=== PATIENT | male | born 1950 | race African-American/Black ===

== ENCOUNTER 2019-05-02 10:02 | Inpatient (IN) | payer OTHER, BC ==
[2019-05-02] MEDS ORDERED: methylPREDNISolone NA SUCC 125 MG/2 ML VIAL ONE (10:10)
[2019-05-02] MEDS ORDERED: FAMOTIDINE 20 MG/50 ML IVPB 20 MG/50 ML MG IVPB ONE ×2 (10:10→10:13)
[2019-05-02] MEDS ORDERED: DEXAMETHASONE SOD PHOSPHATE 10 MG/1 ML VIAL IVPUSH ONE (10:13)
[2019-05-02] MEDS ORDERED: DEXAMETHASONE SOD PHOSPHATE 10 MG/1 ML VIAL ONE (10:14)
[2019-05-02 10:49] LABS: BASO % 0.3 % (0-2.0); EOS % 4.6 % (0-4.5); HEMATOCRIT 38.9 % (35.4-49); HEMOGLOBIN 13.1 GM/dL (11.7-16.9); LYMPH % 29.2 % (8-40); MCH 27.3 pg (25.7-33.7); MCHC 33.7 g/dl (32.0-35.9); MEAN CELL VOLUME 81.1 fl (80-96); MEAN PLT VOLUME 8.5 fl (7.5-11.1); MONO % 21.1 % (3.8-10.2); NEUT % 44.8 % (42.8-82.8); PLATELET COUNT 201 K/MM3 (134-434); RDW 14.4 % (11.9-15.9); WHITE BLOOD COUNT 5.5 K/mm3 (4.0-10.0)
[2019-05-02 11:08] LABS: INR 1.1 (0.83-1.09)
[2019-05-02 11:25] LABS: ALBUMIN 3.6 g/dl (3.4-5.0); BILIRUBIN,TOTAL 0.5 mg/dL (0.2-1); BLOOD UREA NITROGEN 24.1 mg/dL (7-18); CALCIUM 9.4 mg/dL (8.5-10.1); CREATININE 1.6 mg/dL (0.55-1.3); POTASSIUM 4.2 mmol/L (3.5-5.1); TOT PROT 8.2 g/dl (6.4-8.2)
--- NOTE | 2019-05-02 11:52 | PDOC ---
Documentation entered by Humberto Barnhart SCRIBE, acting as scribe for Henry Kelly MD. Henry Kelly MD: This documentation has been prepared by the Bronwyn wayne Elijah, SCRIBE, under my direction and personally reviewed by me in its entirety. I confirm that the documentation accurately reflects all work, treatment, procedures, and medical decision making performed by me. History of Present Illness - General Chief Complaint: Allergic Reaction Stated Complaint: ALLERGIC REACTION / SWOLLEN LIP Time Seen by Provider: 05/02/19 10:12 History Source: Patient Exam Limitations: No Limitations - History of Present Illness Initial Comments: 05/02/19 10:33 Patient is a 68 year old male with a significant past medical history of HTN who presents to the ED with an allergic reaction. Patient reports that he woke up this morning with a swollen lip and when he began to feel the rest of his face start to expand it prompted his visit to the ED. Allergies: NKA Past History - Past Medical History Allergies/Adverse Reactions: Allergies Allergy/AdvReac Type Severity Reaction Status Date / Time No Known Allergies Allergy Verified 05/02/19 10:09 Home Medications: Ambulatory Orders Unobtainable 05/02/19 - Suicide/Smoking/Psychosocial Hx Smoking History: Never smoked Have you smoked in the past 12 months: No Information on smoking cessation initiated: No Hx Alcohol Use: No Drug/Substance Use Hx: No Review of Systems - Review of Systems Comments:: 05/02/19 10:33 CONSTITUTIONAL: No fever, no chills, no fatigue EYES: No visual changes ENT: +Swollen Lip. No ear pain, no sore throat CARDIOVASCULAR: No chest pain, no palpitations RESPIRATORY: No cough, no SOB GI: No abdominal pain, no nausea, no vomiting, no constipation, no diarrhea GENITOURINARY: No dysuria, no frequency, no hematuria MUSKULOSKELETAL: No backpain, no joint pain, no myalgias SKIN: No rash NEURO: No headache *Physical Exam - Vital Signs Last Vital Signs Temp Pulse Resp BP Pulse Ox 98.7 F 67 16 163/71 98 05/02/19 10:04 05/02/19 10:04 05/02/19 10:04 05/02/19 10:04 05/02/19 10:04 - Physical Exam Comments: 05/02/19 10:33 CONSTITUTIONAL: Well-appearing; well-nourished; in no apparent distress HEAD: Normocephalic; atraumatic EYES: PERRL; EOM intact ENMT: +Severe Angioedema of the Lower Lip and L-Side of Face. No Stridor; No tonue edema. Uvula midline no edremytis NECK: Supple; non-tender; no cervical lymphadenopathy CARD: Normal S1, S2; no murmurs, rubs, or gallops RESP: Normal chest excursion with respiration; breath sounds clear and equal bilaterally; no wheezes, rhonchi, or rales ABD: Soft, non-distended; non-tender; no palpable organomegaly, no palpable hernias EXT: Normal ROM in all four extremities; non-tender to palpation; distal pulses intact SKIN: Warm, dry, no rash NEURO: No focal neurological deficiencies. ED Treatment Course - LABORATORY CBC & Chemistry Diagram: 05/02/19 10:20 05/02/19 10:20 - ADDITIONAL ORDERS Additional order review: Laboratory Results 05/02/19 05/02/19 10:20 10:20 PT with INR 13.00 INR 1.10 H Sodium 137 Potassium 4.2 Chloride 101 Carbon Dioxide 28 Anion Gap 7 L BUN 24.1 H Creatinine 1.6 H Est GFR (CKD-EPI)AfAm 49.85 Est GFR (CKD-EPI)NonAf 43.01 Random Glucose 122 H Calcium 9.4 Total Bilirubin 0.5 AST 37 ALT 54 Alkaline Phosphatase 83 Total Protein 8.2 Albumin 3.6 05/02/19 10:20 RBC 4.80 MCV 81.1 MCHC 33.7 RDW 14.4 MPV 8.5 Neutrophils % 44.8 Lymphocytes % 29.2 Monocytes % 21.1 H Eosinophils % 4.6 H Basophils % 0.3 - Medications Given in the ED: ED Medications Discontinued Medications Generic Name Dose Route Start Last Admin Trade Name Freq PRN Reason Stop Dose Admin Dexamethasone Sodium Phosphate 10 mg 05/02/19 10:13 05/02/19 10:10 Decadron Injection - IVPUSH 05/02/19 10:14 10 mg ONCE ONE Administration Diphenhydramine HCl 50 mg 05/02/19 10:13 05/02/19 10:10 Benadryl Injection - IVPB 05/02/19 10:14 50 mg ONCE ONE Administration Famotidine/Sodium Chloride 20 mg in 50 mls @ 100 mls/hr 05/02/19 10:13 10:10 Pepcid 20 Mg Premixed Ivpb - IVPB 05/02/19 10:42 100 mls/hr ONCE ONE Administration Medical Decision Making - Medical Decision Making 05/02/19 11:50 Patient is a 68-year-old male with history of hypertension who presents with signs and symptoms of ARB induced facial angioedema with dysphonia. Initial evaluation, no stridor or lingual edema was noted. Uvula was noted to be midline and nonedematous. Patient is received Decadron, Benadryl and IV Pepcid. Will observe. We'll consult ENT. Likely admission 05/02/19 15:04 Patient reassessed. Angioedema appears to be extending to the left upper lip and face. There is still no evidence of stridor, there is no lingual or uvula edema. ENT consult is pending. Given potential for airway compromise, will admit the patient to the ICU for further observation and treatment. *DC/Admit/Observation/Transfer Diagnosis at time of Disposition: Angioedema Qualifiers: Encounter type: initial encounter Qualified Code(s): T78.3XXA - Angioneurotic edema, initial encounter - Discharge Dispostion Condition at time of disposition: Fair Decision to Admit order: Yes - Referrals - Patient Instructions - Post Discharge Activity - Attestations Physician Attestion: 05/02/19 11:50 The documentation was prepared by the scribe under my direct supervision. I have reviewed the documentation which correctly represents the findings, medical decision-making and critical action taken by me.
[2019-05-02 12:00] LABS: ANISOCYTOSIS 0; MACROCYTOSIS 0; PLATELET ESTIMATE NORMAL
--- NOTE | 2019-05-02 15:19 | CONSULT ---
Consultation: CONSULT SERVICE: ICU Resident HISTORY OF PRESENT ILLNESS: 68yo M with h/o EMILY and HTN who presents today after waking up with edema of his lips. Pt reports waking this morning and feeling as though his lower lip was swollen, however did not notice any cosmetic changes. He reports taking his Bystolic dose as usual however after he took his medication he began to appreciate severe lip swelling. Pt went to the ER for further evaluation at this time. In the ED pt was given Decadron, Benadryl, and Pepcid, however his edema progressed to involve his L upper lip as well without any reduction in lower lip. At time of exam pt reports feeling increased swelling of his anterior buccal mucosa. Pt denies any shortness of breath, dysphagia, odynophagia, hoarseness. Pt denies any new soaps or detergents. His last meal was composed of luis alberto bernadine and water with chicken nuggets (dinner previous night ). He took his medications with water and has been on bystolic for about 10 years. Pt has not had any previous allergies or angioedema and he has not had any skin rash testing. PMHx: HTN EMILY (CPAP machine use; 4mmH20 is his usual nightly setting) SHX: No tobacco products Occasional alcohol No illicit drugs Lives at home and is independent in ADLs REVIEW OF SYSTEMS: As per HPI PHYSICAL EXAMINATION Vital Signs - 24 hr 05/02/19 05/02/19 10:04 13:03 Temperature 98.7 F Pulse Rate 67 Pulse Rate [ 58 L Apical] Respiratory 16 16 Rate Blood Pressure 163/71 Blood Pressure 135/79 [Right Arm] O2 Sat by Pulse 98 97 Oximetry (%) GENERAL: NAD, awake, alert, and fully oriented HEENT: NC/AT, CHECO, sclera anicteric, no nasal polyps, inferior lip tense angioedema, L-sided superior lip angioedema, no edema of the tongue or posterior oropharynx, Mallampati 1-2, MMM NECK: No JVD, no lymphadenopathy, no edema LUNGS: CTA bilaterally. No wheezes, and no crackles. No accessory muscle use. HEART: Regular rate and rhythm, normal S1 and S2 without murmur ABDOMEN: Soft, nontender, not distended, normoactive bowel sounds, no guarding, EXTREMITIES: 2+ pulses, warm, well-perfused. No calf tenderness. No peripheral edema. PSYCHIATRIC: Cooperative. Good eye contact. Appropriate mood and affect. SKIN: Warm, dry, normal turgor, no rashes, edema as HEENT exam Laboratory Results 05/02/19 05/02/19 05/02/19 10:20 10:20 10:20 WBC 5.5 RBC 4.80 Hgb 13.1 Hct 38.9 MCV 81.1 MCH 27.3 MCHC 33.7 RDW 14.4 Plt Count 201 MPV 8.5 Absolute Neuts (auto) 2.5 Neutrophils % 44.8 Neutrophils % (Manual) 40.4 L Band Neutrophils % 0.0 Lymphocytes % 29.2 Lymphocytes % (Manual) 31.3 Monocytes % 21.1 H Monocytes % (Manual) 20 H Eosinophils % 4.6 H Eosinophils % (Manual) 4.1 Basophils % 0.3 Basophils % (Manual) 1.0 Myelocytes % (Man) 0 Promyelocytes % (Man) 0 Blast Cells % (Manual) 0 Nucleated RBC % 0 Metamyelocytes 0 Hypochromia 0 Platelet Estimate Normal Polychromasia 0 Poikilocytosis 0 Anisocytosis 0 Microcytosis 0 Macrocytosis 0 PT with INR 13.00 INR 1.10 H Sodium 137 Potassium 4.2 Chloride 101 Carbon Dioxide 28 Anion Gap 7 L BUN 24.1 H Creatinine 1.6 H Est GFR (CKD-EPI)AfAm 49.85 Est GFR (CKD-EPI)NonAf 43.01 Random Glucose 122 H Calcium 9.4 Total Bilirubin 0.5 AST 37 ALT 54 Alkaline Phosphatase 83 Total Protein 8.2 Albumin 3.6 ASSESSMENT/PLAN: Angioedema of the face HTN Hx of Obstructive Sleep Apnea --Pt with likely ARB induced angioedema --Stop all medicatoins currently --Continue Steroids, H1 blockers --Pt currently with increasing angioedema despite treatment --Monitor for airway --f/u ENT and appreciate recommendations --Can use CPAP 4mmH20 if needed HS FEN: Fluids: None; tolerating PO currently Electorlyte abnormalities: None Nutrition: NPO until angioedema controlled PPX: DVT - SCDs only; low risk Dispo: Pt needs HLOC due to airway monitoring and would likely be appropriate for medical step-down, however this is not available and pt will be monitored in ICU Case discussed with Dr. Arnold and Dr. Robin Desai, DO - IM PGY-3 Visit type - Emergency Visit Emergency Visit: Yes ED Registration Date: 05/02/19 Care time: The patient presented to the Emergency Department on the above date and was hospitalized for further evaluation of their emergent condition. - New Patient This patient is new to me today: Yes Date on this admission: 05/02/19 - Critical Care Critical Care patient: Yes Total Critical Care Time (in minutes): 30 Critical Care Statement: The care of this patient involved high complexity decision making to prevent further life threatening deterioration of the patient 's condition and/or to evaluate & treat vital organ system(s) failure or risk of failure.
--- NOTE | 2019-05-02 15:55 | CONSULT ---
Consult - text type - Consultation Consultation Note: ENT consult 68 yo man with facial swelling since this morning. Takes an ARB for his HTN. Started on lower lip, fluctuated, spread to much of his mid and lower face, and has been stable for a couple of hours in the ER. No throat c/o. P/WD obese BM laying comfortably in bed, in NAD No stridor Moderate edema of the lower and left upper lips and cheeks OC/OP normal FONE/FOL: normal nasal cavities, nasopharynx, hypopharynx and larynx Imp: angioedema without throat involvement Recommend continue medical management Reconsult if worsens
[2019-05-02 17:13] VITALS: BMI 34.9
--- NOTE | 2019-05-02 18:31 | HP ---
Admitting History and Physical - Primary Care Physician PCP: Efraín Concepcion - Admission History of Present Illness: 68 year old male with a significant past medical history of HTN who presents to the ED with an allergic reaction. Patient reports that he woke up this morning with a swollen lip and when he began to feel the rest of his face start to expand it prompted his visit to the ED. Allergies: NKA - Smoking History Smoking history: Never smoked Have you smoked in the past 12 months: No - Alcohol/Substance Use Hx Alcohol Use: No Home Medications - Allergies Allergies/Adverse Reactions: Allergies Allergy/AdvReac Type Severity Reaction Status Date / Time No Known Allergies Allergy Verified 05/02/19 10:09 - Home Medications Home Medications: Ambulatory Orders Nebivolol [Bystolic -] 0 mg PO DAILY 05/02/19 Prednisone 10 mg PO ASDIR #30 tablet 05/03/19 Physical Examination Vital Signs: Vital Signs Temperature 97.6 F 05/02/19 17:04 Pulse Rate 64 05/02/19 17:04 Respiratory Rate 18 05/02/19 17:04 Blood Pressure 140/87 05/02/19 17:04 O2 Sat by Pulse Oximetry (%) 100 05/02/19 17:20 Constitutional: Yes: No Distress HENT: Yes: Atraumatic, Other (lips swollen) Neck: Yes: Supple Cardiovascular: Yes: Regular Rate and Rhythm Respiratory: Yes: CTA Bilaterally Gastrointestinal: Yes: Normal Bowel Sounds Extremities: Yes: WNL Edema: No Neurological: Yes: Alert, Oriented Labs: CBC, BMP 05/02/19 10:20 05/02/19 10:20 Problem List - Problems (1) Angioedema Assessment/Plan: npo, ivf decadron/benadryl Code(s): T78.3XXA - ANGIONEUROTIC EDEMA, INITIAL ENCOUNTER Qualifiers: Encounter type: initial encounter Qualified Code(s): T78.3XXA - Angioneurotic edema, initial encounter (2) HTN (hypertension) Assessment/Plan: HOLD SY INHIBITOR CONTINUE BYSTOLIC Code(s): I10 - ESSENTIAL (PRIMARY) HYPERTENSION Assessment/Plan Laboratory Tests 05/02/19 05/02/19 05/02/19 10:20 10:20 10:20 WBC 5.5 RBC 4.80 Hgb 13.1 Hct 38.9 MCV 81.1 MCH 27.3 MCHC 33.7 RDW 14.4 Plt Count 201 MPV 8.5 Absolute Neuts (auto) 2.5 Neutrophils % 44.8 Neutrophils % (Manual) 40.4 L Band Neutrophils % 0.0 Lymphocytes % 29.2 Lymphocytes % (Manual) 31.3 Monocytes % 21.1 H Monocytes % (Manual) 20 H Eosinophils % 4.6 H Eosinophils % (Manual) 4.1 Basophils % 0.3 Basophils % (Manual) 1.0 Myelocytes % (Man) 0 Promyelocytes % (Man) 0 Blast Cells % (Manual) 0 Nucleated RBC % 0 Metamyelocytes 0 Hypochromia 0 Platelet Estimate Normal Polychromasia 0 Poikilocytosis 0 Anisocytosis 0 Microcytosis 0 Macrocytosis 0 PT with INR 13.00 INR 1.10 H Sodium 137 Potassium 4.2 Chloride 101 Carbon Dioxide 28 Anion Gap 7 L BUN 24.1 H Creatinine 1.6 H Est GFR (CKD-EPI)AfAm 49.85 Est GFR (CKD-EPI)NonAf 43.01 Random Glucose 122 H Calcium 9.4 Total Bilirubin 0.5 AST 37 ALT 54 Alkaline Phosphatase 83 Total Protein 8.2 Albumin 3.6 Blood Type Antibody Screen 05/02/19 19:00 WBC RBC Hgb Hct MCV MCH MCHC RDW Plt Count MPV Absolute Neuts (auto) Neutrophils % Neutrophils % (Manual) Band Neutrophils % Lymphocytes % Lymphocytes % (Manual) Monocytes % Monocytes % (Manual) Eosinophils % Eosinophils % (Manual) Basophils % Basophils % (Manual) Myelocytes % (Man) Promyelocytes % (Man) Blast Cells % (Manual) Nucleated RBC % Metamyelocytes Hypochromia Platelet Estimate Polychromasia Poikilocytosis Anisocytosis Microcytosis Macrocytosis PT with INR INR Sodium Potassium Chloride Carbon Dioxide Anion Gap BUN Creatinine Est GFR (CKD-EPI)AfAm Est GFR (CKD-EPI)NonAf Random Glucose Calcium Total Bilirubin AST ALT Alkaline Phosphatase Total Protein Albumin Blood Type O POSITIVE Antibody Screen Negative Active Medications Generic Name Dose Route Start Last Admin Trade Name Freq PRN Reason Stop Dose Admin Dexamethasone Sodium Phosphate 10 mg 05/02/19 21:00 Decadron Injection - IVPUSH Q6H-IV BOB Diphenhydramine HCl 50 mg 05/02/19 19:40 Benadryl Injection - IVPUSH 05/02/19 19:41 DAILY ONE Sodium Chloride 1,000 mls @ 75 mls/hr 05/02/19 18:45 Normal Saline - IV ASDIR BOB Famotidine/Sodium Chloride 20 mg in 50 mls @ 100 mls/hr 05/02/19 22:00 Pepcid 20 Mg Premixed Ivpb - IVPB BID BOB cc time 60 min
[2019-05-02] MEDS ORDERED: SODIUM CHLORIDE 1,000 ML IV SCH (18:45)
[2019-05-02] MEDS: DEXAMETHASONE SOD PHOSPHATE 10 MG/1 ML VIAL IVPUSH SCH (21:26)
[2019-05-02] MEDS: FAMOTIDINE 20 MG/50 ML IVPB 20 MG/50 ML MG IVPB SCH (21:28)
[2019-05-03] MEDS: DEXAMETHASONE SOD PHOSPHATE 10 MG/1 ML VIAL IVPUSH SCH ×2 (02:37→09:34)
[2019-05-03] MEDS: FAMOTIDINE 20 MG/50 ML IVPB 20 MG/50 ML MG IVPB SCH (09:34)
[2019-05-03 10:52] VITALS: PULSE 68
[2019-05-03] MEDS ORDERED: predniSONE 10 MG TABLET (UD) PO SCH (12:30)
[2019-05-03] MEDS ORDERED: diphenhydrAMINE HCL 25 MG CAPSULE (FP) PO SCH (12:30)
[2019-05-03 12:52] VITALS: BP 167/82
--- NOTE | 2019-05-03 14:01 | PN ---
Teaching Attending Note Name of Resident: Shakir Desai ATTENDING PHYSICIAN STATEMENT I saw and evaluated the patient. I reviewed the resident's note and discussed the case with the resident. I agree with the resident's findings and plan as documented. SUBJECTIVE: OOB to chair. Feels overall better. Less swelling but not completely resolved. No CP or SOB. No pooling of secretions. Intake & Output 04/30/19 05/01/19 05/02/19 05/03/19 23:59 23:59 23:59 23:59 Intake Total 750 Balance 750 Weight 243 lb 2.718 oz Last Vital Signs Temp Pulse Resp BP Pulse Ox 97.9 F 68 24 H 167/82 100 05/03/19 10:00 05/03/19 10:00 05/03/19 10:05/03/19 12:00 05/03/19 08:43 Active Medications Diphenhydramine HCl (Benadryl -) 25 mg PO Q6HPO BOB Prednisone (Deltasone -) 30 mg PO DAILY BOB GENERAL: NAD, awake, alert, and fully oriented HEENT: inferior lip angioedema, L-sided superior lip angioedema, no edema of the tongue or posterior oropharynx, Mallampati 1-2, MMM NECK: No JVD, no lymphadenopathy, no edema LUNGS: CTA bilaterally. No wheezes, and no crackles. No accessory muscle use. HEART: Regular rate and rhythm, normal S1 and S2 without murmur ABDOMEN: Soft, nontender, not distended, normoactive bowel sounds, no guarding, EXTREMITIES: 2+ pulses, warm, well-perfused. No calf tenderness. No peripheral edema. PSYCHIATRIC: Cooperative. Good eye contact. Appropriate mood and affect. SKIN: Warm, dry, normal turgor, no rashes Laboratory Results - last 24 hr 05/02/19 05/02/19 19:00 21:30 Blood Type O POSITIVE O POSITIVE Antibody Screen Negative ASSESSMENT/PLAN: Resolving Angioedema likely due to ARB HTN Hx of Obstructive Sleep Apnea Steroid taper PO as tolerated OOB to chair VTE prophylaxis Floor or DC planning Dr Sharp
--- NOTE | 2019-05-03 14:03 | EKG ---
Test Reason : Blood Pressure : / mmHG Vent. Rate : 060 BPM Atrial Rate : 060 BPM P-R Int : 196 ms QRS Dur : 102 ms QT Int : 410 ms P-R-T Axes : 007 -05 -20 degrees QTc Int : 410 ms NORMAL SINUS RHYTHM ABNORMAL ECG NO PREVIOUS ECGS AVAILABLE Confirmed by CLAUDIA FRANZ MD ([id number]) on 05/03/2019 2:03:04 PM Referred By: Confirmed By:CLAUDIA FRANZ MD
[2019-05-03 15:35] VITALS: TEMP 97.8
--- NOTE | 2019-05-03 16:28 | PN ---
Physical Exam: SUBJECTIVE: Pt markedly improved today. No other complaitns. OBJECTIVE: Vital Signs Period Temp Pulse Resp BP Sys/Simpson Pulse Ox Last 24 Hr 97.6 F-98.5 F 57-88 16-24 140-172/68-87 100-100 GENERAL: NAD, awake, alert, and fully oriented HEENT: NC/AT, Improved angioedema, no posterior oropharynx edema, MMM NECK: No JVD LUNGS: CTA bilaterally. No wheezes, and no crackles. No accessory muscle use. HEART: RRR, normal S1 and S2 without murmur ABDOMEN: Soft, nontender, not distended, normoactive bowel sounds, no guarding, EXTREMITIES: 2+ pulses, warm, well-perfused. No calf tenderness. No peripheral edema. PSYCHIATRIC: Cooperative. Good eye contact. Appropriate mood and affect. SKIN: Warm, dry, normal turgor, no rashes Laboratory Results 05/02/19 05/02/19 19:00 21:30 Blood Type O POSITIVE O POSITIVE Antibody Screen Negative Active Medications Generic Name Dose Route Start Last Admin Trade Name Andrew PRN Reason Stop Dose Admin Diphenhydramine HCl 25 mg 05/03/19 12:30 05/03/19 14:14 Benadryl - PO 25 mg Q6HPO BBO Administration Prednisone 30 mg 05/03/19 12:30 05/03/19 14:14 Deltasone - PO 30 mg DAILY BOB Administration ASSESSMENT/PLAN: Angioedema of the face HTN Hx of Obstructive Sleep Apnea --Pt with likely ARB induced angioedema --Stop all medicatoins currently --Will likely need short medrol taper on outpatient --Would start on diuretic portion of bystolic only --Clinically okay with either transfer out of unit or discharge home per primary team FEN: Fluids: None; tolerating PO currently Electorlyte abnormalities: None Nutrition: Regular diet PPX: DVT - SCDs only; low risk Dispo: Transfer out of ICU vs. discharge home per primary team Case discussed with Dr. Aron Desai, DO - IM PGY-3 Visit type - Emergency Visit Emergency Visit: Yes ED Registration Date: 05/02/19 Care time: The patient presented to the Emergency Department on the above date and was hospitalized for further evaluation of their emergent condition. - New Patient This patient is new to me today: Yes Date on this admission: 05/03/19 - Critical Care Critical Care patient: No ATTENDING PHYSICIAN STATEMENT I saw and evaluated the patient. I reviewed the resident's note and discussed the case with the resident. I agree with the resident's findings and plan as documented. SUBJECTIVE: OBJECTIVE: ASSESSMENT AND PLAN:
--- NOTE | 2019-05-03 17:01 | DS ---
Physical Examination Vital Signs: Vital Signs Temperature 97.8 F 05/03/19 14:00 Pulse Rate 68 05/03/19 10:00 Respiratory Rate 24 H 05/03/19 10:00 Blood Pressure 167/82 05/03/19 12:00 O2 Sat by Pulse Oximetry (%) 100 05/03/19 08:43 Constitutional: Yes: No Distress HENT: Yes: Atraumatic Neck: Yes: Supple Cardiovascular: Yes: Regular Rate and Rhythm Respiratory: Yes: CTA Bilaterally Gastrointestinal: Yes: Normal Bowel Sounds Extremities: Yes: WNL Edema: No Neurological: Yes: Alert, Oriented Labs: CBC, BMP 05/02/19 10:20 05/02/19 10:20 Discharge Summary Reason For Visit: ANGIOEDEMA Current Active Problems Angioedema (Acute) HTN (hypertension) (Acute) Condition: Fair - Instructions Diet, Activity, Other Instructions: do not take SY INHIBITOR Referrals: Juan Manuel Forde MD [Staff Physician] - Efraín Concepcion MD [Staff Physician] - - Home Medications Comprehensive Discharge Medication List: Ambulatory Orders Nebivolol [Bystolic -] 0 mg PO DAILY 05/02/19 Prednisone 10 mg PO ASDIR #30 tablet 05/03/19 ok home
== END 2019-05-03 17:22 | disposition home or self-care (01) | DRG 916 ==
LOC: JER 10:02 → JERBED 15:05 → JICU 16:48
PROVIDERS: ADMIT Internal Medicine; ATTEND Internal Medicine
DX: T78.3XXA Angioneurotic edema, initial encounter (principal); T46.1X5A Adverse effect of calcium-channel blockers, initial encounter; Y92.038 Other place in apartment as the place of occurrence of the external cause; I10 Essential (primary) hypertension; T44.7X5A Adverse effect of beta-adrenoreceptor antagonists, initial encounter; E66.9 Obesity, unspecified; Z68.34 Body mass index [BMI] 34.0-34.9, adult; G47.33 Obstructive sleep apnea (adult) (pediatric)
CPT/HCPCS: 36415; 71045-TC-FY; 80053; 85025; 85610; 86850; 86900; 86901; 93005; 93010; 99283-25; J1100; J7030

== ENCOUNTER 2020-11-02 20:10 | Inpatient (IN) | payer OTHER, BC ==
[2020-11-02] MEDS ORDERED: SODIUM CHLORIDE 0.9% 500 ML INFUS.BAG IV ONE ×2 (20:44→21:51)
[2020-11-02] MEDS ORDERED: dilTIAZem HCL 50 MG/10 ML - 10 ML VIAL ONE (20:54)
[2020-11-02] MEDS ORDERED: dilTIAZem HCL 50 MG/10 ML - 10 ML VIAL IVPUSH ONE ×2 (21:30→22:30)
[2020-11-02] MEDS ORDERED: FOLIC ACID INJECTION - 1 MG, THIAMINE HCL 100 MG, MULTIVIT INJECTION ADULT 10 ML in SOD... IVPB ONE (21:30)
[2020-11-02 21:37] LABS: BASO % 0.3 % (0-2.0); HEMATOCRIT 54.2 % (35.4-49); HEMOGLOBIN 17.3 GM/dL (11.7-16.9); LYMPH % 5.9 % (8-40); MCH 27.1 pg (25.7-33.7); MCHC 31.9 g/dl (32.0-35.9); MEAN CELL VOLUME 85.1 fl (80-96); MEAN PLT VOLUME 9.5 fl (7.5-11.1); MONO % 9.9 % (3.8-10.2); NEUT % 83.9 % (42.8-82.8); PLATELET COUNT 263 K/MM3 (134-434); RBC 6.38 M/mm3 (4.00-5.60); RDW 14.6 % (11.9-15.9); WHITE BLOOD COUNT 11.3 K/mm3 (4.0-10.0)
[2020-11-02 21:45] LABS: VENOUS BASE EXCESS -18.9 mmol/L (-2-2); VENOUS O2 SATURATION 67.2 % (70-80); VENOUS PCO2 34.9 mmHg (38-52)
[2020-11-02 21:48] LABS: VENOUS PH 7.081 (7.310-7.410)
[2020-11-02] MEDS ORDERED: INSULIN REGULAR HUMAN 100 UNITS/ML *VIAL* (FOR IVP) IVPUSH ONE (21:50)
[2020-11-02 21:51] LABS: INR 0.92 (0.83-1.09); PROTHROMBIN TIME (PATIENT) 11.2 SEC (9.7-13.0)
[2020-11-02 21:53] LABS: ACTIVATED PTT 24.1 SECONDS (25.2-36.5)
[2020-11-02 22:32] LABS: ALBUMIN 3.3 g/dl (3.4-5.0); ALK PHOS 100 U/L (45-117); ANION GAP 30 MMOL/L (8-16); BILIRUBIN,TOTAL 0.5 mg/dL (0.2-1); BLOOD UREA NITROGEN 77.7 mg/dL (7-18); CALCIUM 10.3 mg/dL (8.5-10.1); CHLORIDE 97 mmol/L (98-107); CO2 10 mmol/L (21-32); CREATININE 2.8 mg/dL (0.55-1.3); POTASSIUM 5.8 mmol/L (3.5-5.1); SGOT/AST 17 U/L (15-37); SGPT/ALT 22 U/L (13-61); SODIUM 138 mmol/L (136-145)
[2020-11-02] MEDS ORDERED: dilTIAZem HCL 125 MG/25 ML - 25 ML VIAL ONE (22:33)
[2020-11-02 22:35] LABS: GLUCOSE,RANDOM 634 mg/dL (74-106)
[2020-11-02] MEDS: INSULIN REGULAR 100 UNITS in SODIUM CHLORIDE 99 ML IVPB SCH (22:39)
[2020-11-02 23:26] LABS: EPI CELLS 8 /uL (0-25.1); HYALINE CASTS 1 /uL (0-3.1); URINE APPEARANCE CLEAR; URINE BACTERIA 489 /uL (0-1359); URINE BILIRUBIN NEGATIVE (NEGATIVE); URINE COLOR YELLOW; URINE GLUCOSE (UA) 3+ (NEGATIVE); URINE KETONE 2+ (NEGATIVE); URINE LEUK ESTERASE NEGATIVE (NEGATIVE); URINE NITRITE NEGATIVE (NEGATIVE); URINE PROTEIN 1+ (NEGATIVE); URINE RBC 23 /uL (0-23.9); URINE UROBILINOGEN 0.2 mg/dL (0.2-1.0); URINE WBC 18 /uL (0-25.8)
[2020-11-03] MEDS ORDERED: dilTIAZem HCL 50 MG/10 ML - 10 ML VIAL IVPUSH ONE ×3 (00:09→02:10)
[2020-11-03] MEDS ORDERED: DILTIAZEM INJECTION 125 MG in SODIUM CHLORIDE 100 ML IVPB SCH (01:15)
[2020-11-03] MEDS ORDERED: LACTATED RINGERS SOLUTION 1,000 ML/1,000 ML INFUS.BAG IV SCH ×2 (01:15→11:15)
[2020-11-03] MEDS ORDERED: CEFTRIAXONE 1 GM in SODIUM CHLORIDE 50 ML IVPB ONE (01:30)
[2020-11-03 01:56] LABS: CREATININE 1.3 mg/dL (0.55-1.3)
[2020-11-03 02:20] LABS: LIPASE 1070 U/L (73-393)
[2020-11-03 02:41] LABS: POTASSIUM 2.5 mmol/L (3.5-5.1)
[2020-11-03 02:42] LABS: CALCIUM 5.1 mg/dL (8.5-10.1)
[2020-11-03] MEDS ORDERED: SODIUM CHLORIDE 0.45%/POT 20 MEQ/1,000 ML INFUS.BAG IV SCH ×2 (02:45→07:39)
[2020-11-03] MEDS ORDERED: CALCIUM GLUCONATE 10% - 1,000 MG/10 ML VIAL IVPB ONE (03:10)
[2020-11-03] MEDS: KCL 10 MEQ IVPB 10 MEQ/100 ML INFUS.BAG IVPB SCH ×2 (03:21→06:44)
[2020-11-03 03:45] LABS: VENOUS BASE EXCESS -9.6 mmol/L (-2-2); VENOUS O2 SATURATION 42.6 % (70-80); VENOUS PH 7.273 (7.310-7.410)
[2020-11-03 04:04] LABS: CALCIUM 9.4 mg/dL (8.5-10.1); POTASSIUM 4.9 mmol/L (3.5-5.1)
[2020-11-03 04:06] LABS: BLOOD UREA NITROGEN 72.6 mg/dL (7-18)
[2020-11-03 04:09] LABS: CREATININE 2.3 mg/dL (0.55-1.3)
[2020-11-03 05:44] LABS: BASO % 0.4 % (0-2.0); HEMATOCRIT 47.4 % (35.4-49); HEMOGLOBIN 15.6 GM/dL (11.7-16.9); LYMPH % 6.8 % (8-40); MCH 26.8 pg (25.7-33.7); MCHC 32.9 g/dl (32.0-35.9); MEAN CELL VOLUME 81.6 fl (80-96); MEAN PLT VOLUME 8.3 fl (7.5-11.1); MONO % 11.3 % (3.8-10.2); NEUT % 81.5 % (42.8-82.8); PLATELET COUNT 196 K/MM3 (134-434); RBC 5.81 M/mm3 (4.00-5.60); WHITE BLOOD COUNT 11.7 K/mm3 (4.0-10.0)
[2020-11-03 06:03] LABS: POTASSIUM 4.7 mmol/L (3.5-5.1)
[2020-11-03 06:06] LABS: ALBUMIN 2.8 g/dl (3.4-5.0); CALCIUM 9.7 mg/dL (8.5-10.1)
[2020-11-03 06:10] LABS: CREATININE 2.2 mg/dL (0.55-1.3)
[2020-11-03 06:11] LABS: BILIRUBIN,TOTAL 0.5 mg/dL (0.2-1); TOT PROT 6.6 g/dl (6.4-8.2)
[2020-11-03] MEDS ORDERED: ACETAMINOPHEN 1000 MG/100 ML VIAL (NON FORMULARY) IVPB ONE (06:33)
[2020-11-03] MEDS: HEPARIN NA (PORCINE) 5,000 UNITS/ML 1ML VIAL SQ SCH ×3 (07:19→21:52)
[2020-11-03 08:27] LABS: POTASSIUM 4.1 mmol/L (3.5-5.1)
[2020-11-03 08:28] LABS: CALCIUM 9.3 mg/dL (8.5-10.1)
[2020-11-03 08:29] LABS: BLOOD UREA NITROGEN 63.8 mg/dL (7-18)
[2020-11-03 08:32] LABS: CREATININE 2.1 mg/dL (0.55-1.3)
[2020-11-03] MEDS ORDERED: PT OWN MED DRAWER 7, Y5N ONE ×2 (09:53→09:58)
[2020-11-03] MEDS: MUPIROCIN 2% TOPICAL OINTMENT FOR DECOLONIZATION NS SCH ×2 (09:59→21:52)
[2020-11-03] MEDS ORDERED: HEPARIN NA (PORCINE) 5,000 UNITS/ML 1ML VIAL SQ SCH (10:00)
[2020-11-03] MEDS: CEFTRIAXONE 1 GM in SODIUM CHLORIDE 50 ML IVPB SCH (10:20)
[2020-11-03] MEDS ORDERED: DEXTROSE 5%-LACTATED RINGERS 1,000 ML IV SCH (12:00)
[2020-11-03] MEDS ORDERED: METOPROLOL TARTRATE 5 MG/5 ML VIAL IVPUSH PRN (13:27)
[2020-11-03 14:23] LABS: POTASSIUM 3.9 mmol/L (3.5-5.1)
[2020-11-03 14:25] LABS: CALCIUM 9.7 mg/dL (8.5-10.1)
[2020-11-03 14:26] LABS: BLOOD UREA NITROGEN 59.1 mg/dL (7-18)
[2020-11-03 14:28] LABS: CREATININE 2.1 mg/dL (0.55-1.3)
[2020-11-03] MEDS ORDERED: METOPROLOL TARTRATE 25 MG TABLET (FP) PO SCH (14:30)
[2020-11-03] MEDS: FAMOTIDINE 20 MG/50 ML IVPB 20 MG/50 ML MG IVPB SCH (14:32)
[2020-11-03] MEDS: CHOLECALCIFEROL (VIT D3) 1,000 UNIT (25 MCG) TABLET PO SCH (14:38)
[2020-11-03] MEDS: ASCORBIC ACID 500 MG TABLET (FP) PO SCH (14:38)
[2020-11-03] MEDS ORDERED: POTASSIUM CHLORIDE 10 MEQ in SODIUM CHLORIDE 0.45% 1,000 ML IVPB SCH (14:45)
[2020-11-03] MEDS ORDERED: D5-1/2NS+10 MEQ KCL - 10 MEQ/1,000 ML INFUS.BAG IV SCH (15:00)
[2020-11-03] MEDS: INSULIN REGULAR 100 UNITS in SODIUM CHLORIDE 99 ML IVPB SCH ×2 (17:50→23:55)
[2020-11-03] MEDS ORDERED: INSULIN (LEVEMIR) 100 UNITS/ML UNITS SQ ONE (20:34)
[2020-11-03] MEDS: APIXABAN 5 MG TABLET PO SCH (21:52)
[2020-11-03] MEDS: CHLORHEXIDINE GLUCONATE 4% CLEANSER FOR DECOLONIZATION TP SCH (21:52)
[2020-11-03] MEDS: METOPROLOL TARTRATE 25 MG TABLET (FP) PO SCH (21:52)
[2020-11-03] MEDS: ZINC SULFATE 220 MG CAPSULE (FP) PO SCH (21:53)
[2020-11-04] MEDS: HEPARIN NA (PORCINE) 5,000 UNITS/ML 1ML VIAL SQ SCH (07:04)
[2020-11-04] MEDS: INSULIN SLIDING SCALE (NOVOLOG) 1 VIAL SQ SCH ×4 (07:40→23:09)
[2020-11-04 07:53] LABS: HEMATOCRIT 47.2 % (35.4-49); HEMOGLOBIN 15.7 GM/dL (11.7-16.9); MCH 27.4 pg (25.7-33.7); MCHC 33.2 g/dl (32.0-35.9); MEAN CELL VOLUME 82.5 fl (80-96); MEAN PLT VOLUME 8.7 fl (7.5-11.1); PLATELET COUNT 176 K/MM3 (134-434); RBC 5.73 M/mm3 (4.00-5.60); RDW 13.9 % (11.9-15.9)
[2020-11-04 08:13] LABS: POTASSIUM 4.8 mmol/L (3.5-5.1)
[2020-11-04 08:19] LABS: BLOOD UREA NITROGEN 49.4 mg/dL (7-18)
[2020-11-04 08:20] LABS: ALBUMIN 2.6 g/dl (3.4-5.0); CALCIUM 9.8 mg/dL (8.5-10.1); MAGNESIUM 2.6 mg/dL (1.8-2.4)
[2020-11-04 08:22] LABS: BILIRUBIN,TOTAL 0.6 mg/dL (0.2-1); PHOSPHOROUS 1.4 mg/dL (2.5-4.9)
[2020-11-04 08:24] LABS: CREATININE 1.9 mg/dL (0.55-1.3)
[2020-11-04 08:25] LABS: TOT PROT 6.5 g/dl (6.4-8.2)
[2020-11-04] MEDS ORDERED: SODIUM CHLORIDE 50 ML IVPB ONE (09:12)
[2020-11-04] MEDS ORDERED: cefTRIAXone SODIUM 1 GM VIAL ONE (09:12)
[2020-11-04] MEDS: ZINC SULFATE 220 MG CAPSULE (FP) PO SCH ×2 (09:35→23:07)
[2020-11-04] MEDS: CHOLECALCIFEROL (VIT D3) 1,000 UNIT (25 MCG) TABLET PO SCH (09:35)
[2020-11-04] MEDS: APIXABAN 5 MG TABLET PO SCH ×2 (09:35→23:08)
[2020-11-04] MEDS: FAMOTIDINE 20 MG/50 ML IVPB 20 MG/50 ML MG IVPB SCH (09:35)
[2020-11-04] MEDS: ASCORBIC ACID 500 MG TABLET (FP) PO SCH (09:35)
[2020-11-04] MEDS: CEFTRIAXONE 1 GM in SODIUM CHLORIDE 50 ML IVPB SCH (09:35)
[2020-11-04] MEDS: METOPROLOL TARTRATE 25 MG TABLET (FP) PO SCH ×2 (09:35→23:08)
[2020-11-04] MEDS: MUPIROCIN 2% TOPICAL OINTMENT FOR DECOLONIZATION NS SCH ×2 (09:35→23:48)
[2020-11-04] MEDS ORDERED: SODIUM PHOSPHATE - 20 MM in DEXTROSE 5%-WATER - 250 ML IVPB ONE (14:15)
[2020-11-04] MEDS ORDERED: INSULIN (LEVEMIR) 100 UNITS/ML UNITS SQ SCH (22:00)
[2020-11-04] MEDS: CHLORHEXIDINE GLUCONATE 4% CLEANSER FOR DECOLONIZATION TP SCH (23:49)
[2020-11-05] MEDS ORDERED: METOPROLOL TARTRATE 5 MG/5 ML VIAL IVPUSH PRN (00:06)
[2020-11-05] MEDS: INSULIN SLIDING SCALE (NOVOLOG) 1 VIAL SQ SCH ×4 (06:34→22:48)
[2020-11-05 08:15] LABS: EOS % 0.2 % (0-4.5); HEMATOCRIT 46.4 % (35.4-49); HEMOGLOBIN 15.3 GM/dL (11.7-16.9); LYMPH % 14.7 % (8-40); MCH 27.1 pg (25.7-33.7); MEAN CELL VOLUME 81.9 fl (80-96); MEAN PLT VOLUME 8.7 fl (7.5-11.1); MONO % 11.6 % (3.8-10.2); NEUT % 73.5 % (42.8-82.8); PLATELET COUNT 155 K/MM3 (134-434); RBC 5.66 M/mm3 (4.00-5.60); RDW 14.2 % (11.9-15.9); WHITE BLOOD COUNT 5.4 K/mm3 (4.0-10.0)
[2020-11-05 08:28] LABS: POTASSIUM 3.8 mmol/L (3.5-5.1)
[2020-11-05 08:32] LABS: ALBUMIN 2.6 g/dl (3.4-5.0)
[2020-11-05 08:33] LABS: BLOOD UREA NITROGEN 43.2 mg/dL (7-18)
[2020-11-05 08:35] LABS: CREATININE 1.8 mg/dL (0.55-1.3); MAGNESIUM 2.8 mg/dL (1.8-2.4); PHOSPHOROUS 2.4 mg/dL (2.5-4.9)
[2020-11-05 08:37] LABS: BILIRUBIN,TOTAL 0.6 mg/dL (0.2-1); TOT PROT 6.3 g/dl (6.4-8.2)
[2020-11-05] MEDS ORDERED: SODIUM CHLORIDE 50 ML IVPB ONE (09:35)
[2020-11-05] MEDS ORDERED: cefTRIAXone SODIUM 1 GM VIAL ONE (09:35)
[2020-11-05] MEDS: CHOLECALCIFEROL (VIT D3) 1,000 UNIT (25 MCG) TABLET PO SCH (09:50)
[2020-11-05] MEDS: APIXABAN 5 MG TABLET PO SCH ×2 (09:50→22:48)
[2020-11-05] MEDS: FAMOTIDINE 20 MG/50 ML IVPB 20 MG/50 ML MG IVPB SCH (09:50)
[2020-11-05] MEDS: CEFTRIAXONE 1 GM in SODIUM CHLORIDE 50 ML IVPB SCH (09:50)
[2020-11-05] MEDS: METOPROLOL TARTRATE 25 MG TABLET (FP) PO SCH ×2 (09:50→22:48)
[2020-11-05] MEDS: ZINC SULFATE 220 MG CAPSULE (FP) PO SCH ×2 (09:50→22:48)
[2020-11-05] MEDS: ASCORBIC ACID 500 MG TABLET (FP) PO SCH (09:51)
[2020-11-05 11:28] LABS: POTASSIUM 3.8 mmol/L (3.5-5.1)
[2020-11-05 11:29] LABS: BLOOD UREA NITROGEN 43.9 mg/dL (7-18); CALCIUM 9.9 mg/dL (8.5-10.1)
[2020-11-05 11:34] LABS: CREATININE 1.8 mg/dL (0.55-1.3)
[2020-11-05] MEDS: SODIUM CHLORIDE 0.45% 1,000 ML IV SCH (13:27)
[2020-11-05] MEDS ORDERED: CHLORHEXIDINE GLUCONATE 4% CLEANSER FOR DECOLONIZATION TP SCH (22:00)
[2020-11-05] MEDS: INSULIN (LEVEMIR) 100 UNITS/ML UNITS SQ SCH (22:47)
[2020-11-06] MEDS: SODIUM CHLORIDE 0.45% 1,000 ML IV SCH ×2 (02:04→12:30)
[2020-11-06] MEDS: INSULIN SLIDING SCALE (NOVOLOG) 1 VIAL SQ SCH ×4 (06:16→21:30)
[2020-11-06 07:30] LABS: BASO % 0.2 % (0-2.0); EOS % 0.5 % (0-4.5); HEMATOCRIT 46.1 % (35.4-49); LYMPH % 18.3 % (8-40); MCH 27.1 pg (25.7-33.7); MCHC 32.6 g/dl (32.0-35.9); MEAN CELL VOLUME 83.1 fl (80-96); MEAN PLT VOLUME 9.2 fl (7.5-11.1); MONO % 11.8 % (3.8-10.2); NEUT % 69.2 % (42.8-82.8); PLATELET COUNT 155 K/MM3 (134-434); RBC 5.55 M/mm3 (4.00-5.60); RDW 13.9 % (11.9-15.9); WHITE BLOOD COUNT 4.7 K/mm3 (4.0-10.0)
[2020-11-06 07:43] LABS: CHLORIDE 114 mmol/L (98-107); POTASSIUM 3.8 mmol/L (3.5-5.1); SODIUM 149 mmol/L (136-145)
[2020-11-06 07:47] LABS: ALBUMIN 2.7 g/dl (3.4-5.0); ANION GAP 7 MMOL/L (8-16); CALCIUM 9.8 mg/dL (8.5-10.1); CO2 28 mmol/L (21-32)
[2020-11-06 07:48] LABS: BLOOD UREA NITROGEN 33.6 mg/dL (7-18); GLUCOSE,RANDOM 206 mg/dL (74-106); MAGNESIUM 2.1 mg/dL (1.8-2.4)
[2020-11-06 07:51] LABS: CREATININE 1.5 mg/dL (0.55-1.3); SGOT/AST 19 U/L (15-37); SGPT/ALT 20 U/L (13-61)
[2020-11-06 07:53] LABS: ALK PHOS 77 U/L (45-117); BILIRUBIN,TOTAL 0.5 mg/dL (0.2-1); TOT PROT 6.5 g/dl (6.4-8.2)
[2020-11-06 07:56] LABS: LDH 267 U/L (87-246)
[2020-11-06] MEDS ORDERED: cefTRIAXone SODIUM 1 GM VIAL ONE (09:27)
[2020-11-06] MEDS ORDERED: SODIUM CHLORIDE 50 ML IVPB ONE (09:28)
[2020-11-06] MEDS: ZINC SULFATE 220 MG CAPSULE (FP) PO SCH ×2 (09:32→21:30)
[2020-11-06] MEDS: APIXABAN 5 MG TABLET PO SCH ×2 (09:32→21:31)
[2020-11-06] MEDS: METOPROLOL TARTRATE 25 MG TABLET (FP) PO SCH ×2 (09:32→21:30)
[2020-11-06] MEDS: CHOLECALCIFEROL (VIT D3) 1,000 UNIT (25 MCG) TABLET PO SCH (09:33)
[2020-11-06] MEDS: FAMOTIDINE 20 MG/50 ML IVPB 20 MG/50 ML MG IVPB SCH (09:33)
[2020-11-06] MEDS: CEFTRIAXONE 1 GM in SODIUM CHLORIDE 50 ML IVPB SCH (09:33)
[2020-11-06] MEDS: ASCORBIC ACID 500 MG TABLET (FP) PO SCH (09:33)
[2020-11-06] MEDS ORDERED: METOPROLOL TARTRATE 25 MG TABLET (FP) PO ONE (14:08)
[2020-11-06] MEDS: INSULIN (LEVEMIR) 100 UNITS/ML UNITS SQ SCH (21:30)
[2020-11-07 08:17] LABS: BASO % 0.2 % (0-2.0); EOS % 1.5 % (0-4.5); HEMATOCRIT 40.6 % (35.4-49); HEMOGLOBIN 13.5 GM/dL (11.7-16.9); LYMPH % 18.4 % (8-40); MCH 27.1 pg (25.7-33.7); MCHC 33.2 g/dl (32.0-35.9); MEAN CELL VOLUME 81.9 fl (80-96); MEAN PLT VOLUME 8.9 fl (7.5-11.1); MONO % 12.7 % (3.8-10.2); NEUT % 67.2 % (42.8-82.8); PLATELET COUNT 131 K/MM3 (134-434); POTASSIUM 3.9 mmol/L (3.5-5.1); RBC 4.96 M/mm3 (4.00-5.60); RDW 13.8 % (11.9-15.9); WHITE BLOOD COUNT 5.3 K/mm3 (4.0-10.0)
[2020-11-07 08:28] LABS: ALBUMIN 2.3 g/dl (3.4-5.0); BLOOD UREA NITROGEN 21.6 mg/dL (7-18); CALCIUM 9.1 mg/dL (8.5-10.1); MAGNESIUM 1.9 mg/dL (1.8-2.4)
[2020-11-07 08:29] LABS: CREATININE 1.2 mg/dL (0.55-1.3)
[2020-11-07 08:30] LABS: TOT PROT 5.6 g/dl (6.4-8.2)
[2020-11-07 08:35] LABS: BILIRUBIN,TOTAL 0.5 mg/dL (0.2-1)
[2020-11-07] MEDS ORDERED: SODIUM CHLORIDE 50 ML IVPB ONE (08:51)
[2020-11-07] MEDS ORDERED: cefTRIAXone SODIUM 1 GM VIAL ONE (08:51)
[2020-11-07] MEDS: APIXABAN 5 MG TABLET PO SCH ×2 (09:45→23:54)
[2020-11-07] MEDS: ZINC SULFATE 220 MG CAPSULE (FP) PO SCH ×2 (09:45→23:54)
[2020-11-07] MEDS: FAMOTIDINE 20 MG/50 ML IVPB 20 MG/50 ML MG IVPB SCH (09:45)
[2020-11-07] MEDS: ASCORBIC ACID 500 MG TABLET (FP) PO SCH (09:45)
[2020-11-07] MEDS: METOPROLOL TARTRATE 25 MG TABLET (FP) PO SCH ×2 (09:45→23:54)
[2020-11-07] MEDS: CEFTRIAXONE 1 GM in SODIUM CHLORIDE 50 ML IVPB SCH (09:45)
[2020-11-07] MEDS: INSULIN SLIDING SCALE (NOVOLOG) 1 VIAL SQ SCH ×4 (09:46→23:56)
[2020-11-07] MEDS: CHOLECALCIFEROL (VIT D3) 1,000 UNIT (25 MCG) TABLET PO SCH (09:46)
[2020-11-07] MEDS: SODIUM CHLORIDE 0.45% 1,000 ML IV SCH (11:32)
[2020-11-07] MEDS ORDERED: INSULIN (LEVEMIR) 100 UNITS/ML UNITS SQ SCH (18:30)
[2020-11-07] MEDS: ROSUVASTATIN CA 10 MG TABLET (FP) PO SCH (23:54)
[2020-11-08] MEDS: INSULIN SLIDING SCALE (NOVOLOG) 1 VIAL SQ SCH ×4 (06:31→21:50)
[2020-11-08 07:32] LABS: POTASSIUM 4.1 mmol/L (3.5-5.1)
[2020-11-08 07:55] LABS: ALBUMIN 2.2 g/dl (3.4-5.0); BLOOD UREA NITROGEN 18.8 mg/dL (7-18); CALCIUM 8.5 mg/dL (8.5-10.1); MAGNESIUM 1.7 mg/dL (1.8-2.4)
[2020-11-08 07:57] LABS: BILIRUBIN,TOTAL 0.7 mg/dL (0.2-1); TOT PROT 5.5 g/dl (6.4-8.2)
[2020-11-08 07:58] LABS: CREATININE 1.3 mg/dL (0.55-1.3)
[2020-11-08 08:17] LABS: BASO % 0.1 % (0-2.0); EOS % 1.1 % (0-4.5); HEMATOCRIT 38.9 % (35.4-49); HEMOGLOBIN 12.7 GM/dL (11.7-16.9); LYMPH % 8.2 % (8-40); MCHC 32.6 g/dl (32.0-35.9); MEAN CELL VOLUME 82.9 fl (80-96); MEAN PLT VOLUME 9.5 fl (7.5-11.1); MONO % 10.8 % (3.8-10.2); NEUT % 79.8 % (42.8-82.8); PLATELET COUNT 124 K/MM3 (134-434); RBC 4.69 M/mm3 (4.00-5.60); RDW 13.8 % (11.9-15.9); WHITE BLOOD COUNT 8.3 K/mm3 (4.0-10.0)
[2020-11-08] MEDS ORDERED: SODIUM CHLORIDE 50 ML IVPB ONE (09:32)
[2020-11-08] MEDS ORDERED: cefTRIAXone SODIUM 1 GM VIAL ONE (09:32)
[2020-11-08] MEDS: CEFTRIAXONE 1 GM in SODIUM CHLORIDE 50 ML IVPB SCH (09:50)
[2020-11-08] MEDS: CHOLECALCIFEROL (VIT D3) 1,000 UNIT (25 MCG) TABLET PO SCH (09:50)
[2020-11-08] MEDS: METOPROLOL TARTRATE 25 MG TABLET (FP) PO SCH ×2 (09:50→21:49)
[2020-11-08] MEDS: ASCORBIC ACID 500 MG TABLET (FP) PO SCH (09:50)
[2020-11-08] MEDS: APIXABAN 5 MG TABLET PO SCH ×2 (09:50→21:49)
[2020-11-08] MEDS: FAMOTIDINE 20 MG/50 ML IVPB 20 MG/50 ML MG IVPB SCH (09:50)
[2020-11-08] MEDS: ZINC SULFATE 220 MG CAPSULE (FP) PO SCH ×2 (09:50→21:49)
[2020-11-08] MEDS: SODIUM CHLORIDE 0.45% 1,000 ML IV SCH (11:45)
[2020-11-08] MEDS ORDERED: MAGNESIUM OXIDE 400 MG TABLET (FP) PO ONE (15:34)
[2020-11-08] MEDS: ROSUVASTATIN CA 10 MG TABLET (FP) PO SCH (21:49)
[2020-11-08] MEDS: INSULIN (LEVEMIR) 100 UNITS/ML UNITS SQ SCH (21:49)
[2020-11-09] MEDS: INSULIN SLIDING SCALE (NOVOLOG) 1 VIAL SQ SCH ×4 (06:20→21:58)
[2020-11-09 08:24] LABS: POTASSIUM 3.9 mmol/L (3.5-5.1)
[2020-11-09 08:28] LABS: ALBUMIN 2.4 g/dl (3.4-5.0); BASO % 0.3 % (0-2.0); BLOOD UREA NITROGEN 16.2 mg/dL (7-18); EOS % 1.7 % (0-4.5); HEMATOCRIT 38.3 % (35.4-49); HEMOGLOBIN 12.6 GM/dL (11.7-16.9); LYMPH % 15.7 % (8-40); MCH 27.3 pg (25.7-33.7); MCHC 32.9 g/dl (32.0-35.9); MEAN CELL VOLUME 82.8 fl (80-96); MEAN PLT VOLUME 9.8 fl (7.5-11.1); MONO % 20.9 % (3.8-10.2); NEUT % 61.4 % (42.8-82.8); PLATELET COUNT 128 K/MM3 (134-434); RBC 4.62 M/mm3 (4.00-5.60); RDW 13.6 % (11.9-15.9); WHITE BLOOD COUNT 4.8 K/mm3 (4.0-10.0)
[2020-11-09 08:29] LABS: CALCIUM 8.7 mg/dL (8.5-10.1)
[2020-11-09 08:32] LABS: CREATININE 1.1 mg/dL (0.55-1.3)
[2020-11-09 08:33] LABS: BILIRUBIN,TOTAL 0.5 mg/dL (0.2-1); TOT PROT 5.8 g/dl (6.4-8.2)
[2020-11-09] MEDS ORDERED: SODIUM CHLORIDE 50 ML IVPB ONE (09:41)
[2020-11-09] MEDS ORDERED: cefTRIAXone SODIUM 1 GM VIAL ONE (09:41)
[2020-11-09] MEDS: APIXABAN 5 MG TABLET PO SCH ×2 (09:49→21:41)
[2020-11-09] MEDS: METOPROLOL TARTRATE 25 MG TABLET (FP) PO SCH ×2 (09:49→21:41)
[2020-11-09] MEDS: CEFTRIAXONE 1 GM in SODIUM CHLORIDE 50 ML IVPB SCH (09:49)
[2020-11-09] MEDS: CHOLECALCIFEROL (VIT D3) 1,000 UNIT (25 MCG) TABLET PO SCH (09:49)
[2020-11-09] MEDS: FAMOTIDINE 20 MG/50 ML IVPB 20 MG/50 ML MG IVPB SCH (09:49)
[2020-11-09] MEDS: ZINC SULFATE 220 MG CAPSULE (FP) PO SCH ×2 (09:49→21:41)
[2020-11-09] MEDS: ASCORBIC ACID 500 MG TABLET (FP) PO SCH (09:49)
[2020-11-09 10:01] LABS: ANISOCYTOSIS 0; MACROCYTOSIS 0; PLATELET ESTIMATE DECREASED
[2020-11-09] MEDS ORDERED: INSULIN (NOVOLOG) ASPART 100 UNITS/ML 10ML VIAL ONE (16:33)
[2020-11-09 20:21] VITALS: BMI 27.5
[2020-11-09] MEDS: ROSUVASTATIN CA 10 MG TABLET (FP) PO SCH (21:41)
[2020-11-09] MEDS: INSULIN (LEVEMIR) 100 UNITS/ML UNITS SQ SCH (21:58)
[2020-11-10] MEDS: INSULIN SLIDING SCALE (NOVOLOG) 1 VIAL SQ SCH ×4 (06:52→22:00)
[2020-11-10 08:28] LABS: BASO % 0.4 % (0-2.0); EOS % 1.7 % (0-4.5); HEMATOCRIT 37.8 % (35.4-49); HEMOGLOBIN 12.5 GM/dL (11.7-16.9); LYMPH % 16.4 % (8-40); MCH 27.1 pg (25.7-33.7); MEAN CELL VOLUME 82.2 fl (80-96); MEAN PLT VOLUME 9.6 fl (7.5-11.1); MONO % 20.2 % (3.8-10.2); NEUT % 61.3 % (42.8-82.8); PLATELET COUNT 170 K/MM3 (134-434); RDW 13.3 % (11.9-15.9); WHITE BLOOD COUNT 4.5 K/mm3 (4.0-10.0)
[2020-11-10] MEDS ORDERED: cefTRIAXone SODIUM 1 GM VIAL ONE (08:44)
[2020-11-10] MEDS ORDERED: SODIUM CHLORIDE 50 ML IVPB ONE (08:45)
[2020-11-10 08:49] LABS: POTASSIUM 4.1 mmol/L (3.5-5.1)
[2020-11-10 09:06] LABS: ALBUMIN 2.3 g/dl (3.4-5.0); BLOOD UREA NITROGEN 10.5 mg/dL (7-18); CALCIUM 8.7 mg/dL (8.5-10.1); MAGNESIUM 1.9 mg/dL (1.8-2.4)
[2020-11-10 09:09] LABS: CREATININE 1.1 mg/dL (0.55-1.3)
[2020-11-10 09:10] LABS: TOT PROT 5.8 g/dl (6.4-8.2)
[2020-11-10 09:11] LABS: BILIRUBIN,TOTAL 0.6 mg/dL (0.2-1)
[2020-11-10] MEDS: APIXABAN 5 MG TABLET PO SCH ×2 (10:00→21:58)
[2020-11-10] MEDS: CHOLECALCIFEROL (VIT D3) 1,000 UNIT (25 MCG) TABLET PO SCH (10:00)
[2020-11-10] MEDS: ASCORBIC ACID 500 MG TABLET (FP) PO SCH (10:00)
[2020-11-10] MEDS: FAMOTIDINE 20 MG TABLET PO SCH ×2 (10:00→21:58)
[2020-11-10] MEDS: ZINC SULFATE 220 MG CAPSULE (FP) PO SCH ×2 (10:00→21:58)
[2020-11-10] MEDS: CEFTRIAXONE 1 GM in SODIUM CHLORIDE 50 ML IVPB SCH (10:00)
[2020-11-10] MEDS: METOPROLOL TARTRATE 25 MG TABLET (FP) PO SCH ×2 (10:00→21:58)
[2020-11-10 10:40] LABS: ANISOCYTOSIS 0; HELMET CELLS 0; HOWELL-JOLLY BODIES 0; MACROCYTOSIS 0; OVALOCYTE 0; PLATELET ESTIMATE NORMAL; ROULEAU 0; SICKELED CELLS 0; TARGET CELLS 0; TEAR DROP CELLS 0; TOXIC GRANULATION 0
[2020-11-10] MEDS: ROSUVASTATIN CA 10 MG TABLET (FP) PO SCH (21:58)
[2020-11-10] MEDS: INSULIN (LEVEMIR) 100 UNITS/ML UNITS SQ SCH (21:59)
[2020-11-11] MEDS: INSULIN SLIDING SCALE (NOVOLOG) 1 VIAL SQ SCH ×2 (07:06→12:15)
[2020-11-11 07:50] LABS: BASO % 0.3 % (0-2.0); EOS % 1.4 % (0-4.5); HEMATOCRIT 37.6 % (35.4-49); HEMOGLOBIN 12.4 GM/dL (11.7-16.9); LYMPH % 23.6 % (8-40); MEAN CELL VOLUME 81.8 fl (80-96); MONO % 24.6 % (3.8-10.2); NEUT % 50.1 % (42.8-82.8); PLATELET COUNT 200 K/MM3 (134-434); RBC 4.59 M/mm3 (4.00-5.60); RDW 13.6 % (11.9-15.9)
[2020-11-11 08:20] LABS: ALBUMIN 2.5 g/dl (3.4-5.0); CALCIUM 8.6 mg/dL (8.5-10.1)
[2020-11-11 08:22] LABS: MAGNESIUM 1.9 mg/dL (1.8-2.4)
[2020-11-11 08:23] LABS: CREATININE 1.1 mg/dL (0.55-1.3)
[2020-11-11 08:25] LABS: BILIRUBIN,TOTAL 0.7 mg/dL (0.2-1)
[2020-11-11 08:36] LABS: POTASSIUM 3.8 mmol/L (3.5-5.1)
[2020-11-11] MEDS ORDERED: INSULIN (LEVEMIR) 100 UNITS/ML UNITS SQ SCH (09:26)
[2020-11-11] MEDS: CHOLECALCIFEROL (VIT D3) 1,000 UNIT (25 MCG) TABLET PO SCH (10:21)
[2020-11-11] MEDS: ASCORBIC ACID 500 MG TABLET (FP) PO SCH (10:21)
[2020-11-11] MEDS: APIXABAN 5 MG TABLET PO SCH (10:21)
[2020-11-11] MEDS: FAMOTIDINE 20 MG TABLET PO SCH (10:21)
[2020-11-11] MEDS: ZINC SULFATE 220 MG CAPSULE (FP) PO SCH (10:21)
[2020-11-11] MEDS: METOPROLOL TARTRATE 25 MG TABLET (FP) PO SCH (10:21)
[2020-11-11 10:45] LABS: ANISOCYTOSIS 0; MACROCYTOSIS 0; PLATELET ESTIMATE NORMAL
[2020-11-11 15:27] VITALS: BP 111/70; PULSE 73; TEMP 98.6
== END 2020-11-11 18:12 | disposition home health service (06) | DRG 177 ==
LOC: JER 20:10 → JERBED 20:33 → JICU 11-03 00:35 → J4S 11-04 22:59 → J4W 11-07 03:15
PROVIDERS: ADMIT Internal Medicine Pulmonary Disease; ATTEND Nurse Practitioner Acute Care
DX: U07.1 COVID-19 (principal); E11.10 Type 2 diabetes mellitus with ketoacidosis without coma; G93.41 Metabolic encephalopathy; N17.9 Acute kidney failure, unspecified; E87.0 Hyperosmolality and hypernatremia; E87.2 Acidosis; I12.9 Hypertensive chronic kidney disease with stage 1 through stage 4 chronic kidney disease, or unspecified chronic kidney disease; N18.9 Chronic kidney disease, unspecified; I48.0 Paroxysmal atrial fibrillation; Z79.4 Long term (current) use of insulin
CPT/HCPCS: 36415; 70450-TC; 71045-TC-FY; 74176-TC; 80048; 80053; 80061; 81003; 82010; 82140; 82550; 82728; 82803; 82962; 83036; 83605; 83615; 83690; 83721; 83735; 84100; 84439; 84443; 84478; 84484; 85025; 85027; 85379; 85610; 85730; 86140; 86769; 87040; 87086; 93005; 93010; 93880-TC; 97116-GP; 97162-GP; 99285-25; C9803; J0131; J1644; J3480; U0003